=== PATIENT | male | born 1980 | race Caucasian/White ===

== ENCOUNTER 2017-07-15 21:11 | Emergency (ER) | payer BC ==
[~2017-07-15] VITALS: Ht 185.4 cm; Wt 113.4 kg
[2017-07-15 21:11] VITALS: BP_SYST 142
[2017-07-15] MEDS: ONDANSETRON 4 MG ODT TAB PO ONE (22:43)
[2017-07-15 23:00] VITALS: BP_SYST 137
== END 2017-07-15 23:00 | disposition home or self-care (01) ==
LOC: SED 21:11
DX: R07.89 Other chest pain (principal); I10 Essential (primary) hypertension
CPT/HCPCS: 71046; 93005; 99284; Q0162

== ENCOUNTER 2017-09-13 17:30 | Emergency (ER) | payer BC ==
[~2017-09-13] VITALS: Ht 185.4 cm; Wt 113.4 kg
[2017-09-13 17:45] VITALS: BP_SYST 131
[2017-09-13] MEDS ORDERED: KETOROLAC TROMETHAMINE 30 MG VIAL IM ONE (19:00)
[2017-09-13] MEDS ORDERED: HYDROcodone/ACETAMIN 7.5-325 MG TAB PO ONE (19:00)
[2017-09-13 19:31] VITALS: BP_SYST 132
== END 2017-09-13 19:31 | disposition left against medical advice (07) ==
LOC: SED 17:30
DX: S86.012A Strain of left Achilles tendon, initial encounter (principal); I10 Essential (primary) hypertension; X58.XXXA Exposure to other specified factors, initial encounter; Y93.89 Activity, other specified; Y92.89 Other specified places as the place of occurrence of the external cause; Y99.8 Other external cause status
CPT/HCPCS: 73590; 96372; 99284; J1885

== ENCOUNTER 2017-09-20 17:55 | Emergency (ER) | payer BC ==
[~2017-09-20] VITALS: Ht 185.4 cm; Wt 113.4 kg
[2017-09-20 18:11] VITALS: BP_SYST 138
[2017-09-20 18:59] LABS: CALCIUM 8.7 mg/dL (8.4-11.0); CREATININE 1.41 mg/dL (0.55-1.30); POTASSIUM 3.8 mmol/L (3.5-5.1)
[2017-09-20 19:04] LABS: ALBUMIN 3.2 g/dL (3.4-4.8); TOTAL BILIRUBIN 0.4 mg/dL (0.0-1.0); URIC ACID 4.6 mg/dL (2.4-7.0)
[2017-09-20 19:08] LABS: BASOPHILS # (AUTO) 0.1 K/uL (0.0-0.2); BASOPHILS % (AUTO) 0.8 % (0.0-2.0); EOSINOPHILS # (AUTO) 0.2 K/uL (0.0-0.4); EOSINOPHILS % (AUTO) 1.7 % (0.0-4.0); HEMATOCRIT 52.2 % (36-54); HEMOGLOBIN 17.4 g/dL (14.0-18.0); LYMPHOCYTES # (AUTO) 1.8 K/uL (1.0-5.5); LYMPHOCYTES % (AUTO) 13.7 % (20.5-51.5); MEAN CORPUSCULAR HEMOGLOBIN 29 pg (27-31); MEAN CORPUSCULAR HGB CONC 33 % (32-36); MEAN CORPUSCULAR VOLUME 86 fL (79.0-98.0); MONOCYTES # (AUTO) 0.7 K/uL (0.0-1.0); MONOCYTES % (AUTO) 5.6 % (1.7-9.3); NEUTROPHILS # (AUTO) 10.5 K/uL (1.8-7.7); NEUTROPHILS % (AUTO) 78.2 % (40.0-70.0); PLATELET COUNT (AUTO) 269 K/uL (130-430); RED BLOOD CELL COUNT(AUTO) 6.05 MIL/uL (4.2-6.2); WHITE BLOOD COUNT (AUTO) 13.3 K/uL (4.8-10.8)
[2017-09-20] MEDS ORDERED: cefTRIAXone 1 GM IVPB PREMIX 50 ML IV ONE (19:15)
[2017-09-20] MEDS ORDERED: KETOROLAC TROMETHAMINE 15 MG VIAL IVP ONE (19:15)
[2017-09-20] MEDS ORDERED: ONDANSETRON HCL 4 MG/2 ML VIAL IVP ONE (19:45)
[2017-09-20] MEDS ORDERED: ONDANSETRON 4 MG ODT TAB ONE (19:58)
[2017-09-20] MEDS ORDERED: ONDANSETRON 4 MG ODT TAB PO ONE (20:00)
[2017-09-20 20:02] VITALS: BP_SYST 124
== END 2017-09-20 20:02 | disposition home or self-care (01) ==
LOC: SED 17:55
DX: S86.002A Unspecified injury of left Achilles tendon, initial encounter (principal); L03.113 Cellulitis of right upper limb; I10 Essential (primary) hypertension; W22.8XXA Striking against or struck by other objects, initial encounter; Y93.89 Activity, other specified; Y92.89 Other specified places as the place of occurrence of the external cause; Y99.8 Other external cause status
CPT/HCPCS: 36415; 73080; 80053; 83605; 84550; 85025; 87040; 96365; 99285; J0696; J1885; Q0162

== ENCOUNTER 2017-09-24 13:30 | Day surgery (SDC) | payer BC ==
[2017-09-23 12:04] LABS: BILIRUBIN,URINE NEGATIVE (NEGATIVE); BLOOD, URINE NEGATIVE (NEGATIVE); CLARITY/URINE CLEAR (CLEAR); COLOR,URINE YELLOW (YELLOW); GLUCOSE,URINE NEGATIVE (NEGATIVE); KETONES,URINE NEGATIVE (NEGATIVE); LEUKOCYTE ESTERASE ,URINE NEGATIVE (NEGATIVE); NITRITE, URINE NEGATIVE (NEGATIVE); PROTEIN URINE NEGATIVE (NEGATIVE)
[2017-09-23 12:10] LABS: BASOPHILS # (AUTO) 0.1 K/uL (0.0-0.2); BASOPHILS % (AUTO) 0.8 % (0.0-2.0); EOSINOPHILS # (AUTO) 0.2 K/uL (0.0-0.4); EOSINOPHILS % (AUTO) 2.1 % (0.0-4.0); HEMATOCRIT 52.3 % (36-54); HEMOGLOBIN 17.6 g/dL (14.0-18.0); LYMPHOCYTES # (AUTO) 1.7 K/uL (1.0-5.5); LYMPHOCYTES % (AUTO) 18.7 % (20.5-51.5); MEAN CORPUSCULAR HEMOGLOBIN 29 pg (27-31); MEAN CORPUSCULAR HGB CONC 34 % (32-36); MEAN CORPUSCULAR VOLUME 85 fL (79.0-98.0); MONOCYTES # (AUTO) 0.8 K/uL (0.0-1.0); MONOCYTES % (AUTO) 8.1 % (1.7-9.3); NEUTROPHILS # (AUTO) 6.5 K/uL (1.8-7.7); NEUTROPHILS % (AUTO) 70.3 % (40.0-70.0); PLATELET COUNT (AUTO) 298 K/uL (130-430); RED BLOOD CELL COUNT(AUTO) 6.16 MIL/uL (4.2-6.2); RED CELL DISTRIBUTION WIDTH 13.1 % (9.0-15.0); WHITE BLOOD COUNT (AUTO) 9.3 K/uL (4.8-10.8)
[2017-09-23 12:22] LABS: CREATININE 1.32 mg/dL (0.55-1.30); POTASSIUM 4.5 mmol/L (3.5-5.1)
[2017-09-23 12:28] LABS: ALBUMIN 3.4 g/dL (3.4-4.8); TOTAL BILIRUBIN 0.5 mg/dL (0.0-1.0)
[~2017-09-24] VITALS: Ht 185.4 cm; Wt 113.4 kg
[2017-09-24] MEDS ORDERED: POLYMYXIN 500,000/BACIT.10,000 UNITS in NS IRR 1 L IR ONE (15:15)
[2017-09-24] MEDS ORDERED: MEPERIDINE HCL/PF 25 MG/ML DISP.SYRIN IVP PRN (18:00)
[2017-09-24] MEDS ORDERED: HYDROmorphone 1 MG INJ. 1 MG/ML AMPUL IVP PRN (18:00)
[2017-09-24] MEDS ORDERED: HYDROmorphone 2 MG/ML VIAL IVP PRN ×2 (18:00)
[2017-09-24] MEDS ORDERED: BUPIVACAINE /EPINEPHRINE/PF 0.25% 30 ML VIAL INJ ONE (18:10)
[2017-09-24] MEDS ORDERED: BUPIVACAINE /PF 0.75% 10 ML VIAL INJ ONE (18:10)
[2017-09-24] MEDS ORDERED: LR 1,000 ML IV.SOLN IV ONE (18:10)
[2017-09-24] MEDS ORDERED: MIDAZOLAM HCL 5 MG/ML VIAL (VERSED) IV ONE (18:10)
[2017-09-24] MEDS ORDERED: BUPIVACAINE /DEX PF 0.75% SPINAL 2 ML AMP INJ ONE (18:10)
[2017-09-24] MEDS ORDERED: NS IRRIG SOLN 1000 ML IR ONE (18:10)
[2017-09-24] MEDS ORDERED: LR 1,000 ML IV SCH (20:00)
[2017-09-25 01:06] VITALS: BP_SYST 127
[2017-09-25 02:24] VITALS: BP_SYST 125
== END 2017-09-25 02:42 | disposition home or self-care (01) ==
LOC: SDS 13:30 → SMU 13:30 → SDS 09-25 02:42
PROVIDERS: ATTEND Orthopaedic Surgery
DX: S86.012A Strain of left Achilles tendon, initial encounter (principal); X58.XXXA Exposure to other specified factors, initial encounter; Y93.9 Activity, unspecified; Y92.89 Other specified places as the place of occurrence of the external cause; Y99.9 Unspecified external cause status; F17.200 Nicotine dependence, unspecified, uncomplicated; G47.33 Obstructive sleep apnea (adult) (pediatric); I51.7 Cardiomegaly; E66.01 Morbid (severe) obesity due to excess calories
CPT/HCPCS: 27650; 36415; 80053; 81003; 85025; J2250; J3490 ×3; J7120

== ENCOUNTER 2018-12-30 08:33 | Day surgery (SDC) | payer BC ==
[~2018-12-30] VITALS: Ht 185.4 cm; Wt 111.1 kg
[2018-12-30] MEDS ORDERED: MIDAZOLAM HCL 2 MG/2 ML VIAL (VERSED) ONE (13:19)
[2018-12-30] MEDS ORDERED: MIDAZOLAM HCL 2 MG/2 ML VIAL (VERSED) IVP ONE (13:30)
[2018-12-30] MEDS ORDERED: ONDANSETRON HCL 4 MG/2 ML VIAL IVP PRN (15:15)
[2018-12-30] MEDS ORDERED: fentaNYL CITRATE/PF 100 MCG/2 ML AMP IVP PRN ×2 (15:15)
[2018-12-30] MEDS ORDERED: ROCURONIUM BROMIDE 10 MG/ML (ZEMURON) ONE (17:25)
[2018-12-30] MEDS ORDERED: LIDOCAINE/EPI 1% 1:100000 20 ML VIAL INJ ONE (17:25)
[2018-12-30] MEDS ORDERED: NS IRRIG SOLN 1000 ML IR ONE (17:25)
[2018-12-30] MEDS ORDERED: MUPIROCIN 2% TOPICAL OINTMENT 22 GM ONE (17:25)
[2018-12-30] MEDS ORDERED: fentaNYL CITRATE/PF 100 MCG/2 ML AMP ONE (17:25)
[2018-12-30] MEDS ORDERED: MIDAZOLAM HCL 5 MG/ML VIAL (VERSED) IV ONE (17:25)
[2018-12-30] MEDS ORDERED: PROPOFOL 200MG/ 20ML VIAL (DIPRIVAN) IV ONE (17:25)
[2018-12-30] MEDS ORDERED: DEXAMETHASONE SOD PHOSPHATE 4 MG/ML VIAL ONE (17:25)
[2018-12-30] MEDS ORDERED: SEVOFLURANE 15 MIN GAS INH ONE (17:25)
[2018-12-30] MEDS ORDERED: LR 1,000 ML IV.SOLN IV ONE (17:25)
[2018-12-30] MEDS ORDERED: ONDANSETRON HCL 4 MG/2 ML VIAL ONE (17:25)
[2018-12-30] MEDS ORDERED: OXYMETAZOLINE HCL 0.05% NASAL SPRAY NS ONE (17:25)
[2018-12-30] MEDS ORDERED: MEPERIDINE HCL/PF 50 MG/ML AMP ONE (17:25)
[2018-12-30] MEDS ORDERED: HYDROcodone/ACETAMIN 5-325 MG TAB (NORCO/ VICODIN) PO ONE (19:00)
[2018-12-30] MEDS ORDERED: HYDROcodone/ACETAMIN 5-325 MG TAB (NORCO/ VICODIN) ONE (19:05)
[2018-12-30] MEDS ORDERED: HYDR-4272 PO (19:15)
[2018-12-30] MEDS ORDERED: AMOX500C2 PO (19:16)
[2018-12-30 19:29] VITALS: BP_SYST 165
[2018-12-30 19:40] VITALS: BP_SYST 156
[2018-12-30 20:00] VITALS: BP_SYST 156
== END 2018-12-30 20:39 | disposition home or self-care (01) ==
LOC: SDS 08:33 → SMU 08:33 → SDS 20:39
PROVIDERS: ATTEND Otolaryngology
DX: J34.2 Deviated nasal septum (principal); J34.89 Other specified disorders of nose and nasal sinuses; D38.5 Neoplasm of uncertain behavior of other respiratory organs; I10 Essential (primary) hypertension; G47.33 Obstructive sleep apnea (adult) (pediatric); Z99.89 Dependence on other enabling machines and devices
CPT/HCPCS: 30140; 30520; 31255; 31256; 31287; 88305; 88311; A4649; C1726; J1100; J2175; J2250; J2405; J2704; J3010; J3465; J7120